=== PATIENT | male | born 1930 | race Caucasian/White ===

== ENCOUNTER 2016-12-27 14:29 | Inpatient (IN) | payer OTHER, MEDICARE, BC ==
[~2016-12-27] VITALS: Ht 177.8 cm; Wt 87.4 kg
[~2016-12-27 14:29] MED LIST: LACTATED RINGER'S 1000 ML INJ 1,000 ML IV ONE; ONDANSETRON HCL 4 MG/2 ML VIAL IV PUSH ONE; PHENYLEPH/NS 1000 MCG/10 ML SYR IV ONE; PROPOFOL 200 MG/20 ML AMP IV ONE; ePHEDrine/NS 25 MG/5 ML SYR IV ONE
[2016-12-27 14:42] VITALS: BP 192/85; PULSE 88; RESP 18; TEMP 98.1; O2SAT 91
[2016-12-27] MEDS ORDERED: OMEP20TA PO (14:45)
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
[2016-12-27 15:10] LABS: BASOPHIL % 0.2 % (0.0-2.0); EOSINOPHIL # 0.1 TH/MM3 (0-0.4); EOSINOPHIL % 0.7 % (0.0-4.0); HEMATOCRIT 40.8 % (39.0-51.0); HEMO FLAGS DIFF FINAL; LYMPH % 15.8 % (9.0-44.0); LYMPHOCYTE # 1.2 TH/MM3 (1.0-4.8); MEAN CORPUSCULAR HGB CONC 33.7 % (32.0-36.0); MONO % 7.2 % (0.0-8.0); NEUT % 76.1 % (16.0-70.0); PLATELET COUNT 142 TH/MM3 (150-450); RED BLOOD COUNT 4.58 MIL/MM3 (4.50-5.90); RED CELL DISTRIBUTION WIDTH 14.8 % (11.6-17.2); WHITE BLOOD COUNT 7.8 TH/MM3 (4.0-11.0)
[2016-12-27] MEDS ORDERED: FAMOTIDINE 20 MG/2 ML VIAL ONE (15:23)
[2016-12-27 15:26] LABS: ALT (GPT) 22 U/L (12-78); ANION GAP 9 MEQ/L (5-15); AST (GOT) 13 U/L (15-37); BICARBONATE 27.6 MEQ/L (21.0-32.0); BLOOD UREA NITROGEN 16 MG/DL (7-18); CHLORIDE 104 MEQ/L (98-107); GLOMERULAR FILTRATION RATE 56 ML/MIN (>89); POTASSIUM 4.2 MEQ/L (3.5-5.1); SODIUM (NA) 141 MEQ/L (136-145)
[2016-12-27 15:28] LABS: ALKALINE PHOSPHATASE 69 U/L (45-117); TOTAL BILIRUBIN ADULT 0.8 MG/DL (0.2-1.0)
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
[2016-12-27] MEDS ORDERED: ceFAZolin INJ 1,000 MG VIAL IV ONE (16:06)
[2016-12-27] MEDS ORDERED: BUPIVACAINE/EPINEPHRINE 0.25% PF 30 ML VIAL INFIL ONE (16:16)
[2016-12-27] MEDS ORDERED: MAGNESIUM HYDROXIDE SUSP 30 ML CUP PO PRN (17:30)
[2016-12-27] MEDS ORDERED: ENALAPRILAT 1.25 MG/ML VIAL IV PRN (17:30)
[2016-12-27] MEDS ORDERED: CHLORHEXIDINE GLUCONATE 2 % 1 PACK (2 CLOTHS) TOP PRN (17:30)
[2016-12-27] MEDS ORDERED: ONDANSETRON HCL 4 MG/2 ML VIAL IV PRN (17:30)
[2016-12-27] MEDS ORDERED: MORPHINE SULFATE 4 MG/ML INJ IV PRN (17:30)
[2016-12-27] MEDS ORDERED: SODIUM CHLORIDE 0.9% FLUSH 5 ML FLUSH IVF PRN (17:30)
[2016-12-27] MEDS ORDERED: MISCELLANEOUS NURSING INFORMATION XX SCH (17:30)
[2016-12-27] MEDS ORDERED: ACETAMINOPHEN/HYDROcodone 325 MG/5 MG TAB PO PRN ×2 (17:30)
[2016-12-27] MEDS ORDERED: fentaNYL CITRATE 250 MCG/5 ML AMP ONE (17:51)
[2016-12-27] MEDS: PANTOPRAZOLE SODIUM 40 MG VIAL IVP SCH (18:30)
[2016-12-27] MEDS ORDERED: DIMETHICONE/OXYBENZONE/PADMIATE LIP BALM 4.25 GM ONE (18:42)
[2016-12-27] MEDS ORDERED: DO NOT ADM ANY ANTICOAGULANT DRUGS XX PRN (18:45)
[2016-12-27] MEDS: SODIUM CHLOR 0.9% 1000 ML INJ 1,000 ML IV SCH (18:52)
[2016-12-27 20:45] VITALS: BP 134/80; PULSE 86; RESP 20; TEMP 97.6; O2SAT 97
[2016-12-27 22:00] VITALS: PULSE 83
[2016-12-27] MEDS: DOCUSATE SODIUM 100 MG CAP PO SCH (22:16)
[2016-12-28] VITALS (14 sets, daily range): BP systolic 122–152; BP diastolic 47–69; PULSE 59–78; RESP 14–22; TEMP 97.2–98.1; O2SAT 92–97
[2016-12-28] MEDS: CHLORHEXIDINE GLUCONATE 2 % 1 PACK (2 CLOTHS) TOP SCH (03:52)
[2016-12-28] MEDS: SODIUM CHLOR 0.9% 1000 ML INJ 1,000 ML IV SCH (03:53)
[2016-12-28 05:39] LABS: BASOPHIL % 0.4 % (0.0-2.0); EOSINOPHIL # 0.2 TH/MM3 (0-0.4); EOSINOPHIL % 2.6 % (0.0-4.0); HEMATOCRIT 33.7 % (39.0-51.0); HEMO FLAGS DIFF FINAL; LYMPH % 19.7 % (9.0-44.0); LYMPHOCYTE # 1.2 TH/MM3 (1.0-4.8); MEAN CORPUSCULAR HEMOGLOBIN 30.5 PG (27.0-34.0); MEAN CORPUSCULAR HGB CONC 34.3 % (32.0-36.0); MONO % 10.2 % (0.0-8.0); NEUT % 67.1 % (16.0-70.0); PLATELET COUNT 139 TH/MM3 (150-450); RED BLOOD COUNT 3.79 MIL/MM3 (4.50-5.90); RED CELL DISTRIBUTION WIDTH 15.1 % (11.6-17.2); WHITE BLOOD COUNT 5.9 TH/MM3 (4.0-11.0)
[2016-12-28 06:08] LABS: ALKALINE PHOSPHATASE 57 U/L (45-117); ALT (GPT) 16 U/L (12-78); ANION GAP 8 MEQ/L (5-15); AST (GOT) 12 U/L (15-37); BICARBONATE 25.3 MEQ/L (21.0-32.0); BLOOD UREA NITROGEN 16 MG/DL (7-18); CHLORIDE 108 MEQ/L (98-107); GLOMERULAR FILTRATION RATE 54 ML/MIN (>89); POTASSIUM 4.1 MEQ/L (3.5-5.1); SODIUM (NA) 141 MEQ/L (136-145); TOTAL BILIRUBIN ADULT 1.4 MG/DL (0.2-1.0)
[2016-12-28] MEDS: DOCUSATE SODIUM 100 MG CAP PO SCH ×2 (09:11→21:23)
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
[2016-12-28] MEDS: ENOXAPARIN SODIUM 40 MG/0.4 ML SYRINGE SQ SCH (21:23)
[2016-12-29] VITALS: BP 152/73; PULSE 82; RESP 18; TEMP 96.9; O2SAT 94
[2016-12-29] MEDS: SODIUM CHLOR 0.9% 1000 ML INJ 1,000 ML IV SCH ×3 (01:00→11:00)
[2016-12-29] MEDS: CHLORHEXIDINE GLUCONATE 2 % 1 PACK (2 CLOTHS) TOP SCH (03:58)
[2016-12-29 06:05] LABS: AUTOMATED NEUTROPHIL # 3.2 TH/MM3 (1.8-7.7); BASOPHIL % 0.4 % (0.0-2.0); EOSINOPHIL # 0.3 TH/MM3 (0-0.4); EOSINOPHIL % 5.2 % (0.0-4.0); HEMATOCRIT 33.4 % (39.0-51.0); HEMO FLAGS DIFF FINAL; LYMPH % 23.2 % (9.0-44.0); LYMPHOCYTE # 1.3 TH/MM3 (1.0-4.8); MEAN CELL VOLUME 89.5 FL (80.0-100.0); MEAN CORPUSCULAR HEMOGLOBIN 30.2 PG (27.0-34.0); MEAN CORPUSCULAR HGB CONC 33.8 % (32.0-36.0); MONO % 11.1 % (0.0-8.0); NEUT % 60.1 % (16.0-70.0); PLATELET COUNT 108 TH/MM3 (150-450); RED BLOOD COUNT 3.73 MIL/MM3 (4.50-5.90); RED CELL DISTRIBUTION WIDTH 15.1 % (11.6-17.2); WHITE BLOOD COUNT 5.4 TH/MM3 (4.0-11.0)
[2016-12-29 06:38] LABS: ALT (GPT) 15 U/L (12-78); ANION GAP 10 MEQ/L (5-15); AST (GOT) 14 U/L (15-37); BICARBONATE 25.4 MEQ/L (21.0-32.0); BLOOD UREA NITROGEN 15 MG/DL (7-18); CHLORIDE 106 MEQ/L (98-107); GLOMERULAR FILTRATION RATE 60 ML/MIN (>89); MAGNESIUM 2.1 MG/DL (1.5-2.5); SODIUM (NA) 141 MEQ/L (136-145)
[2016-12-29 06:40] LABS: ALKALINE PHOSPHATASE 54 U/L (45-117); TOTAL BILIRUBIN ADULT 1.8 MG/DL (0.2-1.0)
[2016-12-29] MEDS ORDERED: WALKER WHEELS/F1 MIS (07:38)
[2016-12-29] MEDS ORDERED: DOCU1CAP39 PO (07:38)
[2016-12-29] MEDS ORDERED: MILKSUS PO (07:38)
[2016-12-29 07:57] VITALS: O2SAT 96
[2016-12-29] MEDS: DOCUSATE SODIUM 100 MG CAP PO SCH ×2 (08:20→21:00)
[2016-12-29] MEDS: LACTULOSE SYRUP 20 GM/30 ML CUP PO SCH (08:21)
[2016-12-29 08:36] VITALS: BP 142/73; PULSE 69; RESP 20; TEMP 96; O2SAT 96
[2016-12-29] MEDS ORDERED: HYDR-3516 PO (11:26)
[2016-12-29 12:00] VITALS: BP 149/71; PULSE 67; RESP 20; TEMP 97; O2SAT 96
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
[2016-12-29] MEDS ORDERED: DIATRIZOATE MEGLUM/DIATRIZOATE SOD 9 ML CUP PO ONE (14:00)
[2016-12-29 16:00] VITALS: BP 157/70; PULSE 67; RESP 20; TEMP 97.3; O2SAT 95
[2016-12-29] MEDS: PANTOPRAZOLE SODIUM 40 MG VIAL IVP SCH (17:33)
[2016-12-29 21:02] VITALS: BP 139/75; PULSE 70; RESP 16; TEMP 97.4; O2SAT 94
[2016-12-29] MEDS: ENOXAPARIN SODIUM 40 MG/0.4 ML SYRINGE SQ SCH (21:54)
--- NOTE | 2016-12-29 22:04 | RADRPT ---
EXAM DATE/TIME: 12/29/2016 17:40 [place] COMPARISON: No previous studies available for comparison. INDICATIONS : Follow-up pneumoperitoneum. ORAL CONTRAST: Prescribed oral contrast ingested. RADIATION DOSE: 14.81 CTDIvol (mGy) MEDICAL HISTORY : Gastroesophageal reflux disease. SURGICAL HISTORY : Cholecystectomy. Umbilical hernia repair. ENCOUNTER: Subsequent ACUITY: 2 days PAIN SCALE: 3/10 LOCATION: Abdomen/pelvis TECHNIQUE: Volumetric scanning of the abdomen and pelvis was performed. Using automated exposure control and ad justment of the mA and/or kV according to patient size, radiation dose was kept as low as reasonably achievable to obtain optimal diagnostic quality images. FINDINGS: I don't see any air within the abdominal or pelvic cavity but there is air within the subcutaneous fa t of the anterior abdominal wall and also within the abdominal wall musculature, especially left obli ques. A don't see an associated fluid collection. No obstruction or acute inflammatory changes are seen at the gastrointestinal tract. Large amount of stool seen in the rectum. Patient has bilateral inguinal hernias. The right inguinal hernia measures about 3 cm across and contains several loops of small bowel. It appears as though it was previously r epaired. 24 mm smoothly circumscribed hypodensity seen of the dome of the right hepatic lobe, most likely a cy st. A No acute abnormality seen of the spleen, pancreas or adrenal glands. There are multiple bilater al renal masses, most fairly typical of cysts. A slightly less determinate lesion with intermediate d ensity seen anteriorly of the right mid zone, measures about 18 mm in size. Abdominal aorta is tortuous and atherosclerotic. No aneurysm. There is consolidation seen posteriorly in the visualized right lung base. A 8mm nodule is seen in th e visualized right middle lobe. Coronary artery calcification noted. CONCLUSION: 1. No pneumoperitoneum but there is small, nonspecific air in the anterior abdominal wall fat and mus culature as above. No fluid collection demonstrated. 2. Large amount of stool in the rectum. 3. Probable hepatic cyst. 4. Bilateral renal lesions most fairly typical of cysts. An indeterminate lesion is seen of the right mid zone. A followup contrast-enhanced study at some point is recommended for attempted further flavia acterization. 5. Pulmonary consolidation in the visualized right lower lobe. 6. 8mm nodule in the visualized right middle lobe. 6 month followup noncontrast chest CT is recommend ed for recheck. Joseph Huerta MD on December 29, 2016 at 21:56 Board Certified Radiologist. This report was verified electronically.
[2016-12-29] MEDS ORDERED: MELATONIN 5 MG TAB PO PRN (23:45)
[2016-12-30 01:02] VITALS: BP 141/81; PULSE 70; RESP 18; TEMP 97.6; O2SAT 95
[2016-12-30 05:43] VITALS: BP 128/76; PULSE 68; RESP 18; TEMP 97.2; O2SAT 92
[2016-12-30] MEDS ORDERED: MAGNESIUM CITRATE SOLN 300 ML BTL PO ONE (07:45)
[2016-12-30 08:00] VITALS: BP 145/70; PULSE 63; RESP 20; TEMP 95.9; O2SAT 95
[2016-12-30] MEDS: LACTULOSE SYRUP 20 GM/30 ML CUP PO SCH (08:38)
[2016-12-30] MEDS: DOCUSATE SODIUM 100 MG CAP PO SCH (08:38)
[2016-12-30 09:10] VITALS: O2SAT 93
[2016-12-30 12:30] VITALS: BP_SYST 134; BP_SYST 139; BP_DIAS 64; BP_DIAS 68; PULSE 62; PULSE 89; RESP 20; TEMP 97; TEMP 97.4; O2SAT 96
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
== END 2016-12-30 15:25 | disposition home or self-care (01) | DRG 358 ==
LOC: NEPA 14:29 → NEDA 14:57 → N03A 20:31 → N05B 12-28 22:29
PROVIDERS: ADMIT Surgery; ATTEND Surgery
PROC: 0WJG4ZZ Inspection of Peritoneal Cavity, Percutaneous Endoscopic Approach (ICD-10-PCS; principal; 2016-12-27 15:45)
DX: R10.9 Unspecified abdominal pain (principal); K21.9 Gastro-esophageal reflux disease without esophagitis; N40.0 Benign prostatic hyperplasia without lower urinary tract symptoms; R93.5 Abnormal findings on diagnostic imaging of other abdominal regions, including retroperitoneum; S60.911A Unspecified superficial injury of right wrist, initial encounter; M19.90 Unspecified osteoarthritis, unspecified site; V13.0XXA Pedal cycle driver injured in collision with car, pick-up truck or van in nontraffic accident, initial encounter; Y93.55 Activity, bike riding; Y92.89 Other specified places as the place of occurrence of the external cause
CPT/HCPCS: 74176; 80053; 83735; 85025; 86850; 86900; 86901; 87641; 94150; 99285; C9113; J0690; J1650; J2370; J2405; J3010; J7030; J7120; Q9963